=== PATIENT | male | born 1940 | race Caucasian/White ===

== ENCOUNTER 2017-12-28 12:39 | Inpatient (IN) | payer MEDICARE, OTHER ==
[2017-12-28 13:09] VITALS: BMI 22.2
--- NOTE | 2017-12-28 15:14 | RAD ---
SINGLE VIEW OF THE CHEST: Comparison: None. History: Aortic stenosis. FINDINGS: Single view of the chest shows a normal sized cardiomediastinal silhouette. There is no evidence of c onsolidation, mass, or pleural effusion. The bones are unremarkable. IMPRESSION: No evidence of acute cardiopulmonary disease. POS: [facility]
[2017-12-28 16:21] LABS: ALT (SGPT) 12 U/L (8-55); AST (SGOT) 15 U/L (5-34); Albumin 3.6 g/dL (3.4-4.8); Alkaline Phosphatase 67 U/L (40-150); Anion Gap 11 mmol/L (10-20); BUN (Urea Nitrogen) 10 mg/dL (8.4-25.7); Bilirubin, Total 0.5 mg/dL (0.2-1.2); Calc. Creatinine Clearance 72 mL/min (70-130); Calcium 9.1 mg/dL (7.8-10.44); Carbon Dioxide 24 mmol/L (23-31); Chloride 109 mmol/L (98-107); Estimated GFR-MDRD Greater than 90; Globulin 2.7 g/dL (2.4-3.5); Glucose 80 mg/dL (83-110); Potassium 3.9 mmol/L (3.5-5.1); Protein, Total 6.3 g/dL (5.8-8.1); Sodium 140 mmol/L (136-145)
[2017-12-28] MEDS: Haloperidol 1 MG TAB PO PRN (16:27)
[2017-12-28] MEDS ORDERED: risperiDONE 0.5 MG TAB ONE (20:21)
[2017-12-28] MEDS: risperiDONE 0.5 MG TAB PO SCH (20:28)
[2017-12-28] MEDS: Rivastigmine 4.6mg/24 Hour PATCH TOP SCH (20:29)
[2017-12-29] MEDS ORDERED: risperiDONE 0.25 MG TAB PO SCH ×2 (09:15→21:00)
[2017-12-29] MEDS: risperiDONE 0.5 MG TAB PO SCH (09:46)
--- NOTE | 2017-12-29 10:53 | HP ---
DATE OF ADMISSION: 12/28/2017 CHIEF COMPLAINT: Severe agitation, weakness, confusion. HISTORY OF PRESENT ILLNESS: The patient is an unfortunate 77-year-old white male with a long history of aortic stenosis, status post aortic valve replacement with no initial complications, but then ons et of progressive confusion and weakness. He has had an episode of sepsis secondary to urinary tract infection with weakness and hypotension, requiring IV antibiotics and fluids last year, but since th at time has had chronic mild confusion until recently became more agitated, confused, and therefore, he was brought to the hospital for evaluation and for possible treatment. He has been treated for un derlying dementia with donepezil 10 mg daily and Namenda 10 mg daily as well as Risperdal 0.5 mg as n eeded. He has not had any complaints of shortness of breath or chest pain. He has been eating with no nausea or vomiting. He has had no fever and chills this time. PAST MEDICAL HISTORY: Remarkable for the above-mentioned problems. SURGICAL HISTORY: For the aortic valve replacement. FAMILY MEDICAL HISTORY: Positive for hypertension. SOCIAL HISTORY: He lives with his . ALLERGIES: He has no known drug allergies. REVIEW OF SYSTEMS: Essentially negative from the patient, but unable to obtain history. The st ates he has had no cough or sputum production. He has had some incontinence, but no documented dysur ia. He has had no back pain or joint pain or skin rashes. He has had no nausea, vomiting, diarrhea. He has had no sore throat or complaints of headaches. PHYSICAL EXAMINATION: GENERAL: Patient is a thin, elderly white male, who is weak and confused, but in no acute distress. VITAL SIGNS: Show him to have blood pressure of 106/70, temperature 97, pulse 81, respirations 18, O 2 saturation 98% on room air. HEENT: Pupils are equal, round, and reactive to light and accommodation. Sclerae are pale. Conjunc tivae are pale. Oropharynx well hydrated. NECK: Supple. LUNGS: Clear. CARDIAC EXAMINATION: Showed a regular rhythm, S4. No other gallops or murmurs. ABDOMEN: Soft and nontender. SKIN AND EXTREMITIES: Display no edema, clubbing, cyanosis. NEUROLOGICAL: Showed no focal findings. LABORATORY: Showed sodium 140, potassium 3.9, chloride 109, bicarbonate 24, BUN 10, creatinine 0.76, glucose 80, total bilirubin 0.5, AST 15, ALT 12. ASSESSMENT: Increasing confusion, most likely due to progressive dementia, but because of previous e pisode of sepsis causing dementia, we will do lactate, CBC, and urinalysis. We will continue on Name nda 10 mg twice daily and Exelon (rivastigmine) patch topically as well as the Risperdal 0.5 twice da wilder. Discontinue . We will hold any antibiotics. We will consult PT and OT for possible evalu ation of weakness, and we will also consult speech.
[2017-12-29 12:22] LABS: #Basophils 0.1 thou/uL (0.0-0.2); #Eosinphils 0.3 thou/uL (0.0-0.7); #Lymphocytes 1.6 thou/uL (1.20-3.40); #Monocytes 0.7 thou/uL (0.11-0.59); #Neutrophils 5.5 thou/uL (1.40-6.50); %Basophils 1.2 % (0.0-1.0); %Eosinophils 3.5 % (0.0-10.0); %Monocytes 8.9 % (0.0-10.0); %Neutrophils 67.4 % (42.0-75.0); Mean Corpuscular HGB CONC 33.3 g/dL (32.0-36.0); Mean Corpuscular Hemoglobin 29.6 pg (27.0-31.0); Mean Corpuscular Volume 89.2 fl (80.0-94.0); Mean Platelet Volume 8.1 fL (7.4-10.4); Platelet Count 292 thou/uL (130-400); Red Blood Cell (RBC) Count 4.72 mill/uL (4.70-6.10); White Blood Cell (WBC) Count 8.2 thou/uL (4.8-10.8)
--- NOTE | 2017-12-29 12:44 | RAD ---
PORTABLE CHEST ONE VIEW: 12/29/2017 11:39 a.m. HISTORY: Pneumonia. CHF. Aortic stenosis. COMPARISON: Exam from the previous day. FINDINGS: The heart size is normal. The aorta is tortuous. The lungs are well expanded without focal areas of consolidation, pneumothorax, or pleural effusions. IMPRESSION: No acute process. POS: [facility]
[2017-12-29 13:35] LABS: Bilirubin Negative (Negative); Blood, Urine Negative (Negative); Clarity Clear (Clear); Glucose, Urine (Dipstick) Negative (Negative); Leukocyte Negative (Negative); Nitrite Negative (Negative); Protein, Urine (Dipstick) Negative (Neg-Trace); Urobilinogen 0.2 mg/dL (0.2-1.0); pH, Urine 5.5 (5.0-9.0)
[2017-12-29] MEDS: Haloperidol 1 MG TAB PO PRN (17:18)
[2017-12-29] MEDS: Rivastigmine 4.6mg/24 Hour PATCH TOP SCH (20:51)
[2017-12-30] MEDS: Haloperidol 1 MG TAB PO PRN ×2 (01:13→15:03)
[2017-12-30] MEDS ORDERED: risperiDONE 0.25 MG TAB PO SCH (08:00)
[2017-12-30] MEDS: risperiDONE 0.25 MG TAB PO SCH ×2 (13:26→19:53)
[2017-12-30] MEDS ORDERED: Haloperidol 1 MG TAB PO PRN (19:42)
[2017-12-30] MEDS: Rivastigmine 4.6mg/24 Hour PATCH TOP SCH (19:53)
--- NOTE | 2017-12-30 21:17 | PRG ---
DATE OF SERVICE: 12/30/2017 SUBJECTIVE: The patient lying in bed, no complaints of chest pain, shortness of breath, but somewhat agitated, requiring increased doses risperidone, has been very weak, has not been falling down. Den ies any palpitations, dizziness, or syncope. OBJECTIVE: Shows temperature 97.9, pulse 87, respirations 18, O2 sats 97% on room air. The patient has refused physical therapy and occupational therapy yesterday, and we will attempt agai n today, and if refuses, he will have to be discharged home. ASSESSMENT: 1. Aortic stenosis appears to be asymptomatic at this time, status post aortic valve replacement. 2. Significant dementia and agitation, requiring increased Risperdal and p.r.n. Haldol. PLAN: Continue to attempt PT and OT , but may not be able to because of dementia and will have to be discharged home.
[2017-12-31] MEDS: risperiDONE 0.25 MG TAB PO SCH ×2 (05:45→12:10)
[2017-12-31 08:19] VITALS: BP 140/65; TEMP 98
--- NOTE | 2018-01-03 10:56 | DIS ---
DATE OF ADMISSION: 12/28/2017 DATE OF DISCHARGE: 12/31/2017 FINAL DIAGNOSES: 1. Acute compensation of dementia with behavioral disturbance with significant weakness, dehydration and agitation. 2. Underlying aortic valve replacement, no complications. 3. History of urinary tract infection and sepsis syndrome with syncope. HOSPITAL COURSE: The patient is an unfortunate 77-year-old white male with a long history of aortic stenosis, status post aortic valve replacement with no sequelae and episode of sepsis with confusion and hypotension last year, who presents with gradually progressive dementia despite treatment with Na menda, omeprazole, and Risperdal, who has become more agitated, confused and unable to eat and was pl aced in the hospital because of altered mental status. PHYSICAL EXAMINATION: VITAL SIGNS: His blood pressure is 106/70, temperature is 97, pulse is 81, and O2 sat was 98%. GENERAL: Showed weak, frail patient, but in no acute distress other than very weak. LUNGS: Clear. CARDIAC: Examination showed regular rhythm. No gallops or murmurs. ABDOMEN: Soft and nontender. Because of the increased confusion as well as previous episode of sepsis, we did lactate, CBC, and ur inalysis. These all returned normal. He is to continue his Namenda 10 twice daily, Exelon patch, st arted omeprazole and Risperdal 0.5 twice daily. No antibiotics were done. Speech consultation and O T and PT consultation was done, but the patient refused to cooperate, remained agitated and was takin g Risperdal and was felt to be not a candidate for therapy and most likely a candidate for nursing [facility] placement. Family arranged this and the patient was transferred to [facility] for evaluation and treatment. His laboratory showed a white count 8200, hematocrit 42, and hemoglobin 14 . Sodium was 140, potassium 3.9, chloride 109, bicarbonate 24, BUN 10, and creatinine 0.76. Liver f unction studies normal. Urinalysis is normal. He was discharged on his medications of Haldol 2 mg q .6 hours as needed, Namenda 10 mg twice daily, Risperdal 0.5 every 8 hours, Exelon patch 4.6 mg night ly. He will be followed [facility] at [facility].
== END 2017-12-31 16:20 | disposition home or self-care (01) | DRG 884 ==
LOC: NAV ACUTE 12:39
PROVIDERS: ADMIT Internal Medicine; ATTEND Internal Medicine
DX: F03.91 Unspecified dementia, unspecified severity, with behavioral disturbance (principal); E86.0 Dehydration; R53.1 Weakness; Z95.2 Presence of prosthetic heart valve
CPT/HCPCS: 71045; 80053; 81003; 85025; G8978-GP-CK; G8979-GP-CJ

== ENCOUNTER 2018-04-01 14:57 | Outpatient (CLI) | payer MEDICARE, OTHER ==
[2018-04-01 17:01] LABS: Bilirubin Negative (Negative); Blood, Urine Negative (Negative); Glucose, Urine (Dipstick) Negative (Negative); Leukocyte Negative (Negative); Nitrite Negative (Negative); Protein, Urine (Dipstick) Negative (Neg-Trace); pH, Urine 5.5 (5.0-9.0)
[2018-04-01 17:04] LABS: #Basophils 0.1 thou/uL (0.0-0.2); #Eosinphils 0.4 thou/uL (0.0-0.7); #Lymphocytes 1.6 thou/uL (1.20-3.40); #Monocytes 0.8 thou/uL (0.11-0.59); #Neutrophils 5.3 thou/uL (1.40-6.50); %Eosinophils 4.9 % (0.0-10.0); %Monocytes 9.5 % (0.0-10.0); %Neutrophils 64.7 % (42.0-75.0); Hemoglobin 13.7 g/dL (14.0-18.0); Mean Corpuscular HGB CONC 31.8 g/dL (32.0-36.0); Mean Corpuscular Hemoglobin 29.3 pg (27.0-31.0); Mean Corpuscular Volume 92.4 fl (80.0-94.0); Mean Platelet Volume 8.6 fL (7.4-10.4); Platelet Count 220 thou/uL (130-400); RBC Distribution Width 12.5 % (11.5-14.5); Red Blood Cell (RBC) Count 4.68 mill/uL (4.70-6.10); White Blood Cell (WBC) Count 8.1 thou/uL (4.8-10.8)
[2018-04-01 17:06] LABS: Clarity Cloudy (Clear); Specific Gravity, Urine 1.026 (1.002-1.036)
[2018-04-01 17:07] LABS: ALT (SGPT) 15 U/L (8-55); AST (SGOT) 22 U/L (5-34); Albumin 3.9 g/dL (3.4-4.8); Alkaline Phosphatase 69 U/L (40-150); Anion Gap 14 mmol/L (10-20); BUN (Urea Nitrogen) 18 mg/dL (8.4-25.7); Bilirubin, Total 0.4 mg/dL (0.2-1.2); Calc. Creatinine Clearance 0 mL/min (70-130); Calcium 9.2 mg/dL (7.8-10.44); Carbon Dioxide 26 mmol/L (23-31); Chloride 106 mmol/L (98-107); Estimated GFR-MDRD 84; Globulin 2.6 g/dL (2.4-3.5); Glucose 122 mg/dL (83-110); Potassium 4.2 mmol/L (3.5-5.1); Protein, Total 6.5 g/dL (5.8-8.1); Sodium 142 mmol/L (136-145)
[2018-04-01 17:16] LABS: Crystals/HPF 4+ AMORPH URATES HPF (Negative)
== END 2018-04-01 14:58 | disposition home or self-care (01) ==
LOC: NAV LABSP 14:57
PROVIDERS: ATTEND Internal Medicine
DX: R41.82 Altered mental status, unspecified (principal)
CPT/HCPCS: 80053; 81001; 85025

== ENCOUNTER 2018-06-17 16:25 | Outpatient (CLI) | payer MEDICARE, OTHER ==
[2018-06-17 18:34] LABS: ALT (SGPT) 17 U/L (8-55); AST (SGOT) 19 U/L (5-34); Albumin 3.9 g/dL (3.4-4.8); Alkaline Phosphatase 65 U/L (40-150); Anion Gap 14 mmol/L (10-20); BUN (Urea Nitrogen) 14 mg/dL (8.4-25.7); Bilirubin, Direct 0.1 mg/dL (0.1-0.3); Bilirubin, Total 0.3 mg/dL (0.2-1.2); Calc. Creatinine Clearance 0 mL/min (70-130); Calcium 9.4 mg/dL (7.8-10.44); Carbon Dioxide 25 mmol/L (23-31); Cardiac Risk 5.1 (Less than 4.5); Chloride 109 mmol/L (98-107); Cholesterol 195 mg/dl (< 200 Desired); Estimated GFR-MDRD Greater than 90; Globulin 2.4 g/dL (2.4-3.5); Glucose 90 mg/dL (83-110); HDL Cholesterol 38 mg/dL (>60 Neg Risk); LDL Cholesterol, Calculated 139 mg/dL; Potassium 4.5 mmol/L (3.5-5.1); Protein, Total 6.3 g/dL (5.8-8.1); Sodium 143 mmol/L (136-145); Triglycerides 91 mg/dL (Less than 150)
[2018-06-17 18:41] LABS: #Basophils 0.1 thou/uL (0.0-0.2); #Eosinphils 0.2 thou/uL (0.0-0.7); #Lymphocytes 1.4 thou/uL (1.20-3.40); #Monocytes 0.6 thou/uL (0.11-0.59); #Neutrophils 4.5 thou/uL (1.40-6.50); %Basophils 1.5 % (0.0-1.0); %Eosinophils 2.9 % (0.0-10.0); %Lymphocytes 20.6 % (21.0-51.0); %Monocytes 9.3 % (0.0-10.0); %Neutrophils 65.7 % (42.0-75.0); Hemoglobin 13.9 g/dL (14.0-18.0); Mean Corpuscular HGB CONC 33.1 g/dL (32.0-36.0); Mean Corpuscular Hemoglobin 30.4 pg (27.0-31.0); Mean Corpuscular Volume 91.8 fL (78.0-98.0); Mean Platelet Volume 9.4 fL (7.4-10.4); Platelet Count 217 thou/uL (130-400); RBC Distribution Width 12.2 % (11.5-14.5); Red Blood Cell (RBC) Count 4.57 mill/uL (4.70-6.10); White Blood Cell (WBC) Count 6.8 thou/uL (4.8-10.8)
== END 2018-06-17 16:26 | disposition home or self-care (01) ==
LOC: NAV LABSP 16:25
PROVIDERS: ATTEND Internal Medicine
DX: F02.81 Dementia in other diseases classified elsewhere, unspecified severity, with behavioral disturbance (principal); E03.9 Hypothyroidism, unspecified; F29 Unspecified psychosis not due to a substance or known physiological condition; R41.82 Altered mental status, unspecified
CPT/HCPCS: 36415; 80053; 80061; 82140; 82248; 84443; 85025

== ENCOUNTER 2019-01-13 16:42 | Outpatient (CLI) | payer MEDICARE, OTHER ==
[2019-01-13 17:24] LABS: #Basophils 0.1 thou/uL (0.0-0.2); #Eosinphils 0.2 thou/uL (0.0-0.7); #Lymphocytes 2.1 thou/uL (1.20-3.40); #Monocytes 0.6 thou/uL (0.11-0.59); #Neutrophils 3.7 thou/uL (1.40-6.50); %Basophils 1.3 % (0.0-1.0); %Eosinophils 3.7 % (0.0-10.0); %Monocytes 8.4 % (0.0-10.0); %Neutrophils 55.5 % (42.0-75.0); Hemoglobin 13.3 g/dL (14.0-18.0); Mean Corpuscular Hemoglobin 32.1 pg (27.0-31.0); Mean Platelet Volume 8.5 fL (7.4-10.4); Platelet Count 167 thou/uL (130-400); RBC Distribution Width 12.8 % (11.5-14.5); Red Blood Cell (RBC) Count 4.13 mill/uL (4.70-6.10); White Blood Cell (WBC) Count 6.7 thou/uL (4.8-10.8)
[2019-01-13 17:39] LABS: ALT (SGPT) 13 U/L (8-55); AST (SGOT) 16 U/L (5-34); Albumin 3.8 g/dL (3.4-4.8); Alkaline Phosphatase 50 U/L (40-150); Anion Gap 11 mmol/L (10-20); BUN (Urea Nitrogen) 19 mg/dL (8.4-25.7); Bilirubin, Total 0.4 mg/dL (0.2-1.2); Calc. Creatinine Clearance 0 mL/min (70-130); Calcium 9.4 mg/dL (7.8-10.44); Carbon Dioxide 27 mmol/L (23-31); Chloride 108 mmol/L (98-107); Estimated GFR-MDRD Greater than 90; Globulin 2.4 g/dL (2.4-3.5); Glucose 91 mg/dL (83-110); Protein, Total 6.2 g/dL (5.8-8.1); Sodium 142 mmol/L (136-145)
== END 2019-01-13 16:43 | disposition home or self-care (01) ==
LOC: NAV LAB 16:42
PROVIDERS: ATTEND Internal Medicine
DX: F03.91 Unspecified dementia, unspecified severity, with behavioral disturbance (principal); R63.4 Abnormal weight loss; R13.10 Dysphagia, unspecified; F06.2 Psychotic disorder with delusions due to known physiological condition
CPT/HCPCS: 36415; 80053; 85025

== ENCOUNTER 2019-03-02 16:50 | Outpatient (CLI) | payer MEDICARE, MEDICAID, OTHER ==
[2019-03-02 17:27] LABS: #Basophils 0.1 thou/uL (0.0-0.2); #Eosinphils 0.3 thou/uL (0.0-0.7); #Lymphocytes 1.6 thou/uL (1.20-3.40); #Monocytes 0.6 thou/uL (0.11-0.59); #Neutrophils 3.8 thou/uL (1.40-6.50); %Basophils 1.5 % (0.0-1.0); %Eosinophils 5.1 % (0.0-10.0); %Lymphocytes 24.5 % (21.0-51.0); %Monocytes 9.3 % (0.0-10.0); %Neutrophils 59.5 % (42.0-75.0); ALT (SGPT) 15 U/L (8-55); AST (SGOT) 21 U/L (5-34); Albumin 3.4 g/dL (3.4-4.8); Alkaline Phosphatase 66 U/L (40-150); Anion Gap 16 mmol/L (10-20); BUN (Urea Nitrogen) 15 mg/dL (8.4-25.7); Bilirubin, Total 0.3 mg/dL (0.2-1.2); Calc. Creatinine Clearance 0 mL/min (70-130); Carbon Dioxide 25 mmol/L (23-31); Chloride 104 mmol/L (98-107); Estimated GFR-MDRD Greater than 90; Globulin 2.5 g/dL (2.4-3.5); Glucose 115 mg/dL (83-110); Hemoglobin 13.9 g/dL (14.0-18.0); Mean Corpuscular HGB CONC 31.6 g/dL (32.0-36.0); Mean Corpuscular Hemoglobin 31.2 pg (27.0-31.0); Mean Corpuscular Volume 98.6 fL (78.0-98.0); Platelet Count 225 thou/uL (130-400); Potassium 4.5 mmol/L (3.5-5.1); Protein, Total 5.9 g/dL (5.8-8.1); RBC Distribution Width 12.4 % (11.5-14.5); Red Blood Cell (RBC) Count 4.46 mill/uL (4.70-6.10); Sodium 140 mmol/L (136-145); White Blood Cell (WBC) Count 6.3 thou/uL (4.8-10.8)
== END 2019-03-02 16:51 | disposition home or self-care (01) ==
LOC: NAV LABSP 16:50
PROVIDERS: ATTEND Internal Medicine
DX: F03.91 Unspecified dementia, unspecified severity, with behavioral disturbance (principal); M62.81 Muscle weakness (generalized); R53.81 Other malaise
CPT/HCPCS: 80053; 84134; 85025